=== PATIENT | female | born 1960 | race Two or more races ===

== ENCOUNTER 2024-08-22 09:27 | Day surgery (SDC) | payer MEDICAID ==
[2024-08-20 13:43] LABS: Basophils # (auto) 0 10 ^3/uL (0-0.2); Basophils % (auto) 0.3 % (0.0-2.0); Eosinophils # (auto) 0.1 10 ^3/uL (0-0.8); Eosinophils % (auto) 1.2 % (0.0-7.0); Hematocrit 44.3 % (36.0-46.0); Hemoglobin 15.1 g/dL (12.2-16.2); Lymphocytes # (auto) 1.5 10 ^3/uL (0.4-5.4); Lymphocytes % (auto) 18.7 % (10.0-50.0); Mean Corpuscular Hemoglobin 32.1 pg (28.0-32.0); Mean Corpuscular Volume 94.4 fL (80.0-100.0); Monocytes # (auto) 0.7 10 ^3/uL (0-1.3); Monocytes % (auto) 8.3 % (0.0-12.0); Neutrophils # (auto) 5.8 10 ^3/uL (1.6-8.6); Neutrophils % (auto) 71.5 % (37.0-80.0); Nucleated Red Blood Cells % 0.1 %; Platelet Count (auto) 207 10^3/uL (140-450); Red Blood Cells 4.69 10^6/uL (4.0-5.20); Red Cell Distribution Width 13.5 % (11.8-14.3); White Blood Cell 8.1 10^3/uL (4.4-10.8)
[2024-08-20 13:55] LABS: INR 0.96 (0.9-1.15); Partial Thromboplastin Time 25.9 SEC (24.5-34.5); Prothrombin Time 10.2 sec (9.3-11.8)
[2024-08-20 14:12] LABS: Alanine Aminotransferase 19 U/L (7-40); Albumin 4.6 g/dL (3.2-4.8); Alkaline Phosphatase 60 U/L (46-116); Anion Gap 8 (5-15); Aspartate Aminotransferase 21 U/L (<34); BUN/Creatinine Ratio 14.9 (10.0-20.0); Bilirubin, Total 0.6 mg/dL (0.2-1.0); Blood Urea Nitrogen 10 mg/dL (9-23); Calcium 10.6 mg/dL (8.7-10.4); Carbon Dioxide 29 mmol/L (20-31); Chloride 105 mmol/L (98-107); Glucose 106 mg/dL (74-106); Potassium 4.3 mmol/L (3.5-5.1); Sodium 142 mmol/L (136-145); Total Protein 7.4 g/dL (5.7-8.2)
[~2024-08-22] VITALS: Ht 152.4 cm; Wt 63.5 kg
[~2024-08-22 09:27] MED LIST: ASPI81CH43 PO; ATOR20TA50 PO; HYDR12.59 PO; LEVO25TA2 PO; LOSA-533 PO; OYST1TAB OR; PANT40TA2 PO; SIMV10TA20 PO; [UNRECOGNIZED DRUG - CODE] PO
[2024-08-22 11:13] VITALS: PULSE 76; RESP 17; O2SAT 98
[2024-08-22] MEDS ORDERED: SODIUM CHLORIDE LOCK 10 ML ONE (11:14)
[2024-08-22] MEDS: MIDAZOLAM HCL 5 MG/ML-1ML VIAL ONE (11:18)
[2024-08-22] MEDS: fentaNYL CITRATE 100 MCG/2 ML VL ONE (11:18)
[2024-08-22] MEDS: diphenhdrAMINE HCL 50 MG/1 ML VL ONE (11:18)
--- NOTE | 2024-08-22 11:47 | DVHOP2 ---
Operative Report DATE OF OPERATION: 08/22/24 PROCEDURE: Colonoscopy with cold biopsy. PREOPERATIVE INDICATION: The patient is a 63 -year-old female undergoing colonoscopy for surveillance with personal history of rectal cancer and colon polyps POSTOPERATIVE DIAGNOSES: 1. There was a 2 mm benign-appearing sigmoid polyp that was seen and removed by cold biopsy forceps 2. There is a rectosigmoid anastomosis at about 5-7 cm above the anal verge whi ch was slightly narrowed and from which biopsies were obtained and there was a visible staple 3. Otherwise completely normal colonoscopy examination up to the cecum and terminal ileum PROCEDURE PERFORMED BY: Niall Smith M.D. SCOPE: Olympus videocolonoscope. ASA CLASS: 2. PREOPERATIVE MEDICATIONS: Versed 5 mg, Fentanyl 100 mcg, Benadryl 50 mg PROCEDURE IN DETAIL: After obtaining an informed consent, the patient was placed on left lateral decubitus position. She was then sedated with the above medications. A rectal examination was performed that was normal except for tightness and discomfort. The colonoscope was then passed through the anus into the rectosigmoid and through the descending, transverse, and ascending colon up to the cecum with visualization of the appendiceal orifice, base of the cecum and the i leocecal valve. The colonoscope was then withdrawn. Distal 5 cm of the terminal ileum were normal. No masses were seen There was no colitis or clear-cut diverticular disease. She had mild tortuosity of the colon In the sigmoid colon there was a 2 mm benign-appearing polyp that was seen and removed by cold biopsy forceps completely In the rectosigmoid at about 5 cm above the anal verge there was a rectosigmoid anastomosis with mild hyperemia and superficial inflammation Biopsies were obtained from this area. There was also open visible staple adjacent to the anastomosis She had trace internal hemorrhoids.The patient tolerated the procedure well without difficulty. WITHDRAWAL TIME: 9 minutes QUALITY OF THE PREP: [place] Bowel Prep score: 9. COMPLICATIONS : None SPECIMENS: Sigmoid colon polyp Rectosigmoid anastomosis biopsies DISPOSITION: Stable D/C to home PLAN: 1. Repeat colonoscopy based on biopsy result in 2-3 years 2. Resume GI soft diet advance as tolerated 3. Local anorectal hemorrhoidal care 4. Outpatient follow up with me in 4-6 weeks to review results and discuss further management NIALL SMITH MD Aug 22, 2024 11:47
[2024-08-22 12:35] VITALS: BP 124/71; PULSE 76; RESP 16; O2SAT 98
== END 2024-08-22 12:35 | disposition home or self-care (01) ==
LOC: GI 09:27
PROVIDERS: ATTEND Internal Medicine Gastroenterology
DX: Z12.11 Encounter for screening for malignant neoplasm of colon (principal); D12.5 Benign neoplasm of sigmoid colon; Z85.038 Personal history of other malignant neoplasm of large intestine; Z86.0100 Personal history of colon polyps, unspecified; Z98.0 Intestinal bypass and anastomosis status; Q43.8 Other specified congenital malformations of intestine; K52.9 Noninfective gastroenteritis and colitis, unspecified; K64.8 Other hemorrhoids
CPT/HCPCS: 36415; 45380; 80053; 85025; 85610; 85730; 88305; J1200; J2250; J3010; J7030